=== PATIENT | female | born 1980 | race American Indian/Alaskan Native ===

== ENCOUNTER 2017-02-14 00:45 | Emergency (ER) | payer MEDICAID, OTHER ==
[2017-02-14 01:32] LABS: Basophils % (Auto) 0.8 % (0.0-1.8); Eosinophils % (Auto) 1.2 % (0.0-4.3); Hematocrit 33.3 % (30.3-42.9); Hemoglobin 10.9 gm/dl (10.1-14.3); Mean Corpuscular HGB Conc 33 % (30-34); Mean Corpuscular Volume 79 fl (79-97); Red Cell Distribution Width 16.6 % (13.2-15.2); White Blood Count 10.2 K/mm3 (4.5-11.0)
[2017-02-14 01:50] LABS: Alanine Aminotransferase 20 units/L (7-56); Albumin 3.6 g/dL (3.9-5); Albumin/Globulin Ratio 1.1 %; Alkaline Phosphatase 68 units/L (35-129); Anion Gap 16 mmol/L; BUN/Creatinine Ratio 21.66; Bilirubin,Total < 0.20 mg/dL (0.1-1.2); Blood Urea Nitrogen 13 mg/dL (7-17); Calcium 9.1 mg/dL (8.4-10.2); Carbon Dioxide 22 mmol/L (22-30); Chloride 101.6 mmol/L (98-107); Creatine Kinase 100 units/L (30-135); Glucose 89 mg/dL (65-100); Lipase 28 units/L (13-60); Mean Corpuscular Hemoglobin 26 pg (28-32); Platelet Count 346 K/mm3 (140-440); Potassium 3.8 mmol/L (3.6-5.0); Sodium 136 mmol/L (137-145); Total Protein 6.9 g/dL (6.3-8.2)
[2017-02-14 02:42] LABS: Bilirubin,Urine NEG (Negative); Blood,Urine NEG (Negative); Ketones,Urine NEG (Negative); Leukocyte Esterase,Urine TR (Negative); Mucus,Urine 2+ /HPF; Nitrite,Urine NEG (Negative); Protein,Urine <15 mg/dL mg/dL (Negative); Urobilinogen,Urine < 2.0 mg/dL (<2.0)
--- NOTE | 2017-02-14 10:59 | Emergency Department Report ---
ED HPI - General Chief complaint: Abdominal Pain Stated complaint: SOB, CP, ABD PAIN Time Seen by Provider: 02/14/17 10:18 Source: patient, RN notes reviewed, old records reviewed Mode of arrival: Ambulatory Limitations: No Limitations - History of Present Illness Complaint: abdominal pain -: Gradual, days(s) Location: other (LLQ) Quality: other (PAIN) Consistency: constant Improves with: none Worsens with: none Associated symptoms: denies other symptoms, abdominal pain, other (BP ELEVATED A /C; HX PREECLAMPSIA; NO FUR SEWER). denies: nausea/vomiting, vaginal bleeding, vaginal discharge, dysuria, headache, vision changes, malaise, dysparuenia, rash , seizure, shortness of breath, syncope, weakness Vaginal bleeding: none :: Yes OB History - Current : no complications OB History - Previous Pregnancies: preeclampsia Last menstrual period: 12/22/16 Pre- care: none - Related Data : 10 Para: 6 Ab: 4 (2-2) Home Medications Medication Instructions Recorded Confirmed Last Taken ALBUTEROL Inhaler [ProAir HFA 2 puff IH QID PRN 01/18/15 01/18/15 Unknown Inhaler] Labetalol [Normodyne TAB] 200 mg PO BID 01/18/15 01/18/15 Unknown Prednisone [predniSONE 10 mg 10 mg PO .TAPER 01/18/15 01/18/15 Unknown (6-Day Pack, 21 Tabs)] Vit-Fe Fumar-FA [ 1 tab PO QDAY 01/18/15 01/18/15 Unknown Vitamin] Previous Rx's Medication Instructions Recorded Last Taken Type Ibuprofen [Motrin 600 MG tab] 600 mg PO Q6H PRN #30 tablet 04/19/15 Unknown Rx Labetalol [Normodyne TAB] 100 mg PO BID #60 tablet 02/14/17 Unknown Rx Nitrofurantoin [place]ary/M-Cryst 100 mg PO Q12HR #10 capsule 02/14/17 Unknown Rx [Macrobid CAP] Ondansetron [Zofran Odt] 4 mg PO Q6H PRN #10 tab.rapdis 02/14/17 Unknown Rx Vit No.130/Iron/FA 1 each PO DAILY #30 tablet 02/14/17 Unknown Rx [ Tablet] Allergies Allergy/AdvReac Type Severity Reaction Status Date / Time No Known Allergies Allergy Verified 09/21/14 03:39 ED Review of Systems ROS: Stated complaint: SOB, CP, ABD PAIN Other details as noted in HPI Comment: All other systems reviewed and negative Constitutional: no symptoms reported, see HPI. denies: chills, diaphoresis, fever, malaise Eyes: as per HPI. denies: eye pain, eye discharge, vision change ENT: as per HPI. denies: ear pain, throat pain, dental pain, hearing loss, epistaxis Respiratory: no symptoms reported, see HPI. denies: cough, orthopnea, shortness of breath, SOB with exertion, SOB at rest, stridor Cardiovascular: as per HPI. denies: chest pain, palpitations, dyspnea on exertion, orthopnea, edema, syncope, paroxysmal nocturnal dyspnea Endocrine: no symptoms reported, see HPI, other (HAS HAD SEVERAL HOME PREG TESTS ). denies: excessive sweating, flushing, intolerance to cold, intolerance to heat, increased hunger, increased thirst, increased urine, unexplained weight gain, unexplained weight loss Gastrointestinal: as per HPI, abdominal pain (LLQ). denies: nausea, vomiting, diarrhea, constipation, hematemesis, melena Genitourinary: as per HPI. denies: urgency, dysuria, frequency, hematuria, discharge Musculoskeletal: as per HPI. denies: back pain, joint swelling, arthralgia Skin: as per HPI. denies: rash, lesions, change in color, change in hair/nails , pruritus Neurological: as per HPI. denies: headache, weakness, numbness, paresthesias, confusion Psychiatric: as per HPI. denies: anxiety, depression, auditory hallucinations, visual hallucinations, homicidal thoughts Hematological/Lymphatic: as per HPI. denies: easy bleeding, easy bruising, swollen glands ED Past Medical Hx - Past Medical History Previous Medical History?: Yes Hx Hypertension: Yes Hx CVA: No Hx Heart Attack/AMI: No Hx Congestive Heart Failure: No Hx Diabetes: No Hx Deep Vein Thrombosis: No Hx Pulmonary Embolism: No Hx GERD: No Hx Liver Disease: No Hx Renal Disease: No Hx of Cancer: No Hx Sickle Cell Disease: No Hx Arthritis: No Hx Headaches / Migraines: No Hx Seizures: No Hx Kidney Stones: No Hx Psychiatric Treatment: No Hx Asthma: Yes Hx COPD: No Hx HIV: No - Surgical History Past Surgical History?: Yes Additional Surgical History: leep, X 2,miscarriage X 2 - Family History Family history: no significant - Social History Smoking Status: Never Smoker Substance Use Type: None - Medications Home Medications: Home Medications Medication Instructions Recorded Confirmed Last Taken Type ALBUTEROL Inhaler [ProAir HFA 2 puff IH QID PRN 01/18/15 01/18/15 Unknown History Inhaler] Labetalol [Normodyne TAB] 200 mg PO BID 01/18/15 01/18/15 Unknown History Prednisone [predniSONE 10 mg 10 mg PO .TAPER 01/18/15 01/18/15 Unknown History (6-Day Pack, 21 Tabs)] Vit-Fe Fumar-FA [ 1 tab PO QDAY 01/18/15 01/18/15 Unknown History Vitamin] Ibuprofen [Motrin 600 MG tab] 600 mg PO Q6H PRN #30 tablet 04/19/15 Unknown Rx Labetalol [Normodyne TAB] 100 mg PO BID #60 tablet 02/14/17 Unknown Rx Nitrofurantoin Mccreary/M-Cryst 100 mg PO Q12HR #10 capsule 02/14/17 Unknown Rx [Macrobid CAP] Ondansetron [Zofran Odt] 4 mg PO Q6H PRN #10 tab.rapdis 02/14/17 Unknown Rx Vit No.130/Iron/FA 1 each PO DAILY #30 tablet 02/14/17 Unknown Rx [ Tablet] ED Physical Exam - General Limitations: No Limitations General appearance: alert - Head Head exam: Present: atraumatic - Eye Eye exam: Present: PERRL - ENT ENT exam: Present: normal exam, normal orophraynx, mucous membranes moist. Absent: mucous membranes dry - Neck Neck exam: Present: normal inspection. Absent: tenderness, meningismus - Respiratory Respiratory exam: Present: normal lung sounds bilaterally. Absent: respiratory distress, wheezes, rales, rhonchi, stridor - Cardiovascular Cardiovascular Exam: Present: regular rate, normal rhythm. Absent: bradycardia , tachycardia, irregular rhythm - GI/Abdominal GI/Abdominal exam: Present: soft, normal bowel sounds. Absent: distended, tenderness, guarding, rebound, rigid, diminished bowel sounds, hyperactive bowel sounds, hypoactive bowel sounds, organomegaly, mass, bruit, pulsatile mass , hernia - Rectal Rectal exam: Present: deferred - Extremities Exam Extremities exam: Present: normal inspection - Back Exam Back exam: Present: normal inspection, full ROM. Absent: tenderness, CVA tenderness (R), CVA tenderness (L) - Neurological Exam Neurological exam: Present: alert, oriented X3, CN II-XII intact, normal gait, reflexes normal - Psychiatric Psychiatric exam: Present: normal affect, normal mood - Skin Skin exam: Present: warm, dry, intact, normal color ED Course Vital Signs 02/14/17 02/14/17 01:02 04:01 Temperature 99.0 F 98.7 F Pulse Rate 99 H 87 Respiratory 20 18 Rate Blood Pressure 145/103 150/107 O2 Sat by Pulse 99 100 Oximetry - Reevaluation(s) Reevaluation #1: 02/14/17 13:38 TO ER RLQ CRAMPING LIKE MENSTRUAL SHE BELIEVED SHE MAY BE PREG SPOTTING IUD LMP 2 W AGO NO VAG DC NO CONCERN FOR STD ABD SNT BS N NO CVA NO DYSURIA NO HX FIBROIDS PREG NEG LABS NOTED BEEN A WHILE PER PT THAT SHE HAS BEEN TO OB SHE HAS HAD IUD FOR 5 Y SHE DECLINED SCAN SHE WILL SEE OB NEXT WEEK SHE WAS CONCERNED MORE THAT SHE HAD ECTOPIC PREG NO N/V/D TAKING PO PT UPDATED AND EDUCATED ON LABS AGAIN NO CONCERN STD ABD REEXAM WNL NO DYSURIA ULTRAM AND DC W FU. ED Medical Decision Making - Lab Data Result diagrams: 02/14/17 01:14 02/14/17 01:14 - Medical Decision Making CRAMPING ABD PAIN W ABN MENSES IN YOUNG HEALTHY FEMALE RO PREG NO UTI NO CONCERN STD DECLINED FURTHER STUDY SEE OB THURSDAY - Differential Diagnosis RO IUP Critical care attestation.: If time is entered above; I have spent that time in minutes in the direct care of this critically ill patient, excluding procedure time. ED Disposition Clinical Impression: Hypertension, IUP (intrauterine ), incidental, Dysuria, Irregular menses Disposition: DC-01 TO HOME OR SELFCARE Is pt being admited?: No Does the pt Need Aspirin: No Condition: Stable Instructions: (ED), Hypertension (ED) Additional Instructions: HYDRATE WELL MEDS ORDERED TODAY FOLLOW UP OB TELL THEM YOU WERE SEEN HERE IN ER EAT WELL MONITOR WEIGHT CAUTION WITH SALT AND FAST FOOD REST VITAMIN Prescriptions: Labetalol [Normodyne TAB] 100 mg PO BID #60 tablet Nitrofurantoin Mccreary/M-Cryst [Macrobid CAP] 100 mg PO Q12HR #10 capsule Ondansetron [Zofran Odt] 4 mg PO Q6H PRN #10 tab.rapdis PRN Reason: Nausea Vit No.130/Iron/FA [ Tablet] 1 each PO DAILY #30 tablet Referrals: PRIMARY CARE, [Primary Care Provider] - 3-5 Days LEIGHANN JENSEN MD [Staff Physician] - 3-5 Days RAFAEL LUND MD [Staff Physician] - 3-5 Days Time of Disposition: 12:31
[2017-02-14 11:06] LABS: Amylase 116 units/L (27-131)
--- NOTE | 2017-02-14 12:04 | Ultrasound Report ---
TRANSABDOMINAL AND TRANSVAGINAL OBSTETRICAL ULTRASOUND:02/14/17 00:45:00 CLINICAL: Left lower quadrant abdominal pain. Positive test. FINDINGS: Transabdominal and transvaginal ultrasound demonstrated a single intrauterine gestational sac with a living fetus. [place]-rump length measured 23.0 mm corresponding to a gestational age = 9 weeks 0 days. heart rate = number 177 beats/min. The yolk sac is normal and the cervix is closed. A soft tissue mass arises from the chorion with an attachment to the posterior inferior sac. The mass is between the amnion and chorion and measures 2.0 x 1.8 x 1.6 cm. It demonstrates no blood flow with color Doppler. The placenta is on the opposite side of the sac. No adnexal mass or free fluid. Normal ovaries. The right ovary measured 3.5 x 2.8 x 3.4cm. The left ovary measured 2.7 x 1.8 x 2.7cm. IMPRESSION: Single living intrauterine fetus at 9 weeks based on crown-rump length measurement. A 2 cm relatively avascular mass associated with the gestational sac and separate from the placenta. Recommend ultrasound followup. EDC based on ultrasound is 09/28/17.
[2017-02-14] MEDS ORDERED: MACROBID PO ONE (12:25)
[2017-02-14] MEDS ORDERED: ZOFRAN ODT PO ONE (12:25)
[2017-02-14] MEDS ORDERED: NORMODYNE PO ONE (12:25)
[2017-02-14 12:30] LABS: Lipase 22 units/L (13-60)
[2017-02-14 14:23] VITALS: BP 153/103
== END 2017-02-14 14:10 | disposition home or self-care (01) ==
LOC: ED 00:45
DX: O23.41 Unspecified infection of urinary tract in pregnancy, first trimester (principal); R30.0 Dysuria; O26.891 Other specified pregnancy related conditions, first trimester; I10 Essential (primary) hypertension; J45.909 Unspecified asthma, uncomplicated; Z3A.09 9 weeks gestation of pregnancy; Z98.890 Other specified postprocedural states
CPT/HCPCS: 36415; 76801; 76817; 80053; 81001; 82150; 82550; 83690; 84484; 84702; 84703; 85025; 86850; 86900; 86901; 93005; 93010; Q0162

== ENCOUNTER 2017-07-29 09:03 | Outpatient (CLI) | payer MEDICAID ==
[2017-07-29] MEDS ORDERED: CELESTONE SOLUSPAN IM ONE (10:15)
[2017-07-30 01:29] VITALS: BP 130/82
== END 2017-07-29 10:01 | disposition home or self-care (01) ==
LOC: TRG 09:03
PROVIDERS: ATTEND Obstetrics & Gynecology
DX: O47.03 False labor before 37 completed weeks of gestation, third trimester (principal); Z3A.32 32 weeks gestation of pregnancy
CPT/HCPCS: 59025; 96372; J0702

== ENCOUNTER 2017-07-29 23:49 | Outpatient (CLI) | payer MEDICAID ==
[2017-07-29] MEDS ORDERED: LACTATED RINGERS 500 ML IV ONE (23:54)
[2017-07-30 00:14] VITALS: BP 134/83
[2017-07-30] MEDS ORDERED: LACTATED RINGERS 1,000 ML ONE (00:24)
== END 2017-07-30 02:03 | disposition home or self-care (01) ==
LOC: TRG 23:49
PROVIDERS: ATTEND Obstetrics & Gynecology
DX: O47.03 False labor before 37 completed weeks of gestation, third trimester (principal); Z3A.32 32 weeks gestation of pregnancy
CPT/HCPCS: 36415; 59025; 82731; J7120

== ENCOUNTER 2017-07-30 02:12 | Emergency (ER) | payer MEDICAID ==
[2017-07-30 02:50] LABS: Basophils % (Auto) 0.3 % (0.0-1.8); Eosinophils % (Auto) 0.1 % (0.0-4.3); Hematocrit 30.5 % (30.3-42.9); Hemoglobin 9.8 gm/dl (10.1-14.3); Lymphocytes # (Auto) 1.4 K/mm3 (1.2-5.4); Lymphocytes % (Auto) 13.6 % (13.4-35.0); Mean Corpuscular HGB Conc 32 % (30-34); Mean Corpuscular Volume 75 fl (79-97); Monocytes # (Auto) 0.5 K/mm3 (0.0-0.8); Monocytes % (Auto) 5.2 % (0.0-7.3); Platelet Count 238 K/mm3 (140-440); Red Blood Count 4.09 M/mm3 (3.65-5.03); Red Cell Distribution Width 17.8 % (13.2-15.2)
[2017-07-30 02:52] LABS: Mean Corpuscular Hemoglobin 24 pg (28-32)
[2017-07-30 03:18] LABS: BUN/Creatinine Ratio 20; Blood Urea Nitrogen 10 mg/dL (7-17); Calcium 8.5 mg/dL (8.4-10.2); Hemolysis Index 0
--- NOTE | 2017-07-30 04:14 | XRay Report ---
FINAL REPORT EXAM: XR CHEST 1V AP HISTORY: Shortness of breath TECHNIQUE: An AP upright view of the chest was submitted. FINDINGS: The heart size and mediastinum appear normal. The lungs are clear. Pleural fluid is not seen. The bones and soft tissues are unremarkable. IMPRESSION: Normal chest.
[2017-07-30] MEDS ORDERED: PROVENTIL IH ONE (04:27)
--- NOTE | 2017-07-30 04:33 | Emergency Department Report ---
ED Shortness of Breath HPI - General Chief Complaint: Dyspnea/Respdistress Stated Complaint: SOB Time Seen by Provider: 07/30/17 04:22 Source: patient Mode of arrival: Ambulatory Limitations: No Limitations - History of Present Illness Initial Comments: Patient is 36 years old female. 33 weeks , history of asthma, patient presented with shortness of breath for the last few days. Patient was not using her inhaler because she is out of it. She denied any fever cough, runny nose or congestion. Patient denied any abdominal pain and vaginal bleeding. She stated that baby is moving well. No other complaints. MD Complaint: shortness of breath Consistency: intermittent Known History Of: asthma Associated Symptoms: denies other symptoms - Related Data Home Medications Medication Instructions Recorded Confirmed Last Taken ALBUTEROL Inhaler [ProAir HFA 2 puff IH QID PRN 01/18/15 01/18/15 Unknown Inhaler] Labetalol [Normodyne TAB] 200 mg PO BID 01/18/15 01/18/15 Unknown Prednisone [predniSONE 10 mg 10 mg PO .TAPER 01/18/15 01/18/15 Unknown (6-Day Pack, 21 Tabs)] Vit-Fe Fumar-FA [ 1 tab PO QDAY 01/18/15 01/18/15 Unknown Vitamin] Previous Rx's Medication Instructions Recorded Last Taken Type Ibuprofen [Motrin 600 MG tab] 600 mg PO Q6H PRN #30 tablet 04/19/15 Unknown Rx Labetalol [Normodyne TAB] 100 mg PO BID #60 tablet 02/14/17 Unknown Rx Nitrofurantoin [place]/M-Cryst 100 mg PO Q12HR #10 capsule 02/14/17 Unknown Rx [Macrobid CAP] Ondansetron [Zofran Odt] 4 mg PO Q6H PRN #10 tab.rapdis 02/14/17 Unknown Rx Vit No.130/Iron/Folic 1 each PO DAILY #30 tablet 02/14/17 Unknown Rx [ Tablet] Allergies Allergy/AdvReac Type Severity Reaction Status Date / Time No Known Allergies Allergy Verified 09/21/14 03:39 ED Review of Systems ROS: Stated complaint: SOB Other details as noted in HPI Comment: All other systems reviewed and negative Respiratory: orthopnea, shortness of breath, SOB with exertion, wheezing Cardiovascular: palpitations. denies: chest pain, dyspnea on exertion, orthopnea Gastrointestinal: denies: abdominal pain, nausea, vomiting ED Past Medical Hx - Past Medical History Previous Medical History?: Yes Hx Hypertension: Yes (CHTN AND PIH W/ PRIOR PREGNANCIES) Hx CVA: No Hx Heart Attack/AMI: No Hx Congestive Heart Failure: No Hx Diabetes: No Hx Deep Vein Thrombosis: No Hx Pulmonary Embolism: No Hx GERD: No Hx Liver Disease: No Hx Renal Disease: No Hx Sickle Cell Disease: No Hx Arthritis: No Hx Headaches / Migraines: No Hx Seizures: No Hx Kidney Stones: No Hx Psychiatric Treatment: No Hx Asthma: Yes (LAST USED INHALER APPRX 1 YEAR AGO) Hx COPD: No Hx HIV: No - Surgical History Additional Surgical History: leep, X 2,miscarriage X 2 - Social History Smoking Status: Never Smoker Substance Use Type: None - Medications Home Medications: Home Medications Medication Instructions Recorded Confirmed Last Taken Type ALBUTEROL Inhaler [ProAir HFA 2 puff IH QID PRN 01/18/15 01/18/15 Unknown History Inhaler] Labetalol [Normodyne TAB] 200 mg PO BID 01/18/15 01/18/15 Unknown History Prednisone [predniSONE 10 mg 10 mg PO .TAPER 01/18/15 01/18/15 Unknown History (6-Day Pack, 21 Tabs)] Vit-Fe Fumar-FA [ 1 tab PO QDAY 01/18/15 01/18/15 Unknown History Vitamin] Ibuprofen [Motrin 600 MG tab] 600 mg PO Q6H PRN #30 tablet 04/19/15 Unknown Rx Labetalol [Normodyne TAB] 100 mg PO BID #60 tablet 02/14/17 Unknown Rx Nitrofurantoin [place]/M-Cryst 100 mg PO Q12HR #10 capsule 02/14/17 Unknown Rx [Macrobid CAP] Ondansetron [Zofran Odt] 4 mg PO Q6H PRN #10 tab.rapdis 02/14/17 Unknown Rx Vit No.130/Iron/Folic 1 each PO DAILY #30 tablet 02/14/17 Unknown Rx [ Tablet] ED Physical Exam - General Limitations: No Limitations General appearance: alert, in no apparent distress - Head Head exam: Present: atraumatic, normocephalic - ENT ENT exam: Present: normal exam, normal orophraynx, mucous membranes moist - Neck Neck exam: Present: normal inspection, full ROM. Absent: tenderness, meningismus, lymphadenopathy - Respiratory Respiratory exam: Present: wheezes, decreased breath sounds. Absent: respiratory distress, rales, rhonchi, accessory muscle use, prolonged expiratory - Cardiovascular Cardiovascular Exam: Present: regular rate, normal rhythm, normal heart sounds - GI/Abdominal GI/Abdominal exam: Present: soft, normal bowel sounds, organomegaly (gravid uterus). Absent: distended, tenderness, guarding, rebound, rigid, mass, bruit, pulsatile mass, hernia - Extremities Exam Extremities exam: Present: normal inspection, full ROM, normal capillary refill. Absent: pedal edema, calf tenderness - Back Exam Back exam: Present: normal inspection. Absent: CVA tenderness (R), CVA tenderness (L) - Neurological Exam Neurological exam: Present: alert, oriented X3, CN II-XII intact, normal gait - Skin Skin exam: Present: warm, intact, normal color ED Course Vital Signs 07/30/17 02:25 Temperature 98.5 F Pulse Rate 104 H Respiratory 18 Rate Blood Pressure 122/88 O2 Sat by Pulse 99 Oximetry ED Medical Decision Making - Lab Data Result diagrams: 07/30/17 02:42 07/30/17 02:42 - EKG Data -: EKG Interpreted by [facility] EKG shows normal: sinus rhythm Rate: tachycardia - EKG Data Interpretation: no acute changes - Radiology Data Radiology results: report reviewed Referring Physician: SULLY ROBERTSON Patient Name: SAHIL SHELDON Date of : 1980 Sex: Female Report Date: 2017-07-30 Report Status: Finalized Findings [facility] [address] [place] [address] XRay Report Signed Patient: SAHIL SHELDON MR#: [id number] : 1980 Acct:[id number] Age/Sex: 36 / F ADM Date: 07/30/17 Loc: ED Attending Dr: Ordering Physician: SULLY ROBERTSON MD Date of Service: 07/30/17 Procedure(s): XR chest 1V ap Accession Number(s): [id number] cc: SULLY ROBERTSON MD Fluoro Time In Minutes: FINAL REPORT EXAM: XR CHEST 1V AP HISTORY: Shortness of breath TECHNIQUE: An AP upright view of the chest was submitted. FINDINGS: The heart size and mediastinum appear normal. The lungs are clear. Pleural fluid is not seen. The bones and soft tissues are unremarkable. IMPRESSION: Normal chest. Transcribed By: RB Dictated By: LUDMILA PEGUERO MD Electronically Authenticated By: LUDMILA PEGUERO MD Signed Date/Time: 07/30/17409 DD/ 9 TD/TT: 07/30/17409 Critical care attestation.: If time is entered above; I have spent that time in minutes in the direct care of this critically ill patient, excluding procedure time. ED Disposition Clinical Impression: Shortness of breath, Asthma exacerbation Disposition: TO HOME OR SELFCARE Is pt being admited?: No Condition: Stable Instructions: Asthma (ED), Dyspnea (ED) Referrals: AMBREEN STOLL MD [Primary Care Provider] - 3-5 Days
[2017-07-30 05:07] VITALS: BP 132/74
== END 2017-07-30 05:31 | disposition home or self-care (01) ==
LOC: ED 02:12
DX: O99.513 Diseases of the respiratory system complicating pregnancy, third trimester (principal); J45.901 Unspecified asthma with (acute) exacerbation; I10 Essential (primary) hypertension; Z3A.33 33 weeks gestation of pregnancy
CPT/HCPCS: 36415; 71045; 80048; 85025; 93005; 93010; 96374; 99284; J2930; 59025; 96360; 96361; 96372; J0702; J7120

== ENCOUNTER 2017-07-30 09:48 | Outpatient (CLI) | payer MEDICAID ==
[2017-07-30] MEDS ORDERED: LACTATED RINGERS 500 ML IV ONE (10:34)
[2017-07-30] MEDS ORDERED: PROCARDIA*For Tocolysis only PO ONE (11:01)
[2017-07-30] MEDS ORDERED: CELESTONE SOLUSPAN IM ONE (12:00)
[2017-07-30 14:34] VITALS: BP 139/92
== END 2017-07-30 14:17 | disposition home or self-care (01) ==
LOC: TRG 09:48
PROVIDERS: ATTEND Obstetrics & Gynecology
DX: O47.03 False labor before 37 completed weeks of gestation, third trimester (principal); Z3A.33 33 weeks gestation of pregnancy
CPT/HCPCS: 59025; 96360; 96361; 96372; J0702; J7120

== ENCOUNTER 2017-08-04 09:53 | Inpatient (IN) | payer MEDICAID ==
[2017-08-04] MEDS ORDERED: LACTATED RINGERS 500 ML IV ONE (10:05)
[2017-08-04 11:01] LABS: Hematocrit 30.1 % (30.3-42.9); Hemoglobin 9.5 gm/dl (10.1-14.3); Mean Corpuscular HGB Conc 32 % (30-34); Mean Corpuscular Volume 76 fl (79-97); Platelet Count 266 K/mm3 (140-440); Red Blood Count 3.98 M/mm3 (3.65-5.03); Red Cell Distribution Width 17.5 % (13.2-15.2)
[2017-08-04 11:06] LABS: Mean Corpuscular Hemoglobin 24 pg (28-32)
[2017-08-04 11:15] LABS: Bacteria,Urine 1+ /HPF (Negative); Bilirubin,Urine NEG (Negative); Blood,Urine NEG (Negative); Color,Urine Yellow (Yellow); Mucus,Urine FEW /HPF; Protein,Urine <15 mg/dL mg/dL (Negative)
[2017-08-04 11:20] LABS: Alanine Aminotransferase 10 units/L (7-56); Uric Acid 3.2 mg/dL (3.5-7.6)
[2017-08-04] MEDS ORDERED: NORMODYNE PO SCH (13:00)
[2017-08-04] MEDS ORDERED: COLACE PO PRN (13:28)
[2017-08-04] MEDS ORDERED: TYLENOL PO PRN (13:28)
[2017-08-04] MEDS ORDERED: LACTATED RINGERS 1,000 ML ONE (13:29)
[2017-08-04] MEDS ORDERED: ALUM-MAG HYDROX-SIMETH 200-200-20MG/5ML PO PRN (13:43)
[2017-08-04] MEDS ORDERED: ZOFRAN IV PRN (13:43)
[2017-08-04] MEDS ORDERED: MYLICON PO PRN (13:43)
[2017-08-04] MEDS ORDERED: MILK OF MAGNESIA PO PRN (13:43)
[2017-08-04] MEDS ORDERED: LACTATED RINGERS 1,000 ML IV SCH (14:00)
--- NOTE | 2017-08-04 14:31 | Consultation ---
History of Present Illness Consult date: 08/04/17 Requesting physician: HOLLY JOSÉ History of present illness: 37 y/o G11) [id number] ABIGAIL 09/17/17 EGA at 33 5/7 weeks Sent in from OB's office with BP's 140/90 per nurse High BP 152/104 - History of CHTN but not on meds - last took medication in 2015 " took myself off " No BP's 140/90's Reports PAYAN's but " I have had them throughout entire preg " ?? spots, No RUQ Pain History of Asthma and recently placed on steroids for one week takes Eight 5 mg tabs per day - Recently admitted for PTC's - got steroids and Mg ---- OB History X 6 in 99,, , 08, 11,15 Had Preeclampsia in 99 Had CHTN with PReeclampsia in 15 ------- Pos H/O HSV No C/D/d Meds Asthma and CHTN NKA ------ EFM 150's Will need US EFW and BPP EFM - 150's reassuring ----- Reports passing 1 Hour GTT ------- Abd obese no RUQ Pain , no gaurding Ext tr - 1 + edema , DTR's 1/, No clonus Past History - Obstetrical History : 11 Medications and Allergies Allergies Allergy/AdvReac Type Severity Reaction Status Date / Time No Known Allergies Allergy Verified 09/21/14 03:39 Home Medications Medication Instructions Recorded Confirmed Last Taken Type ALBUTEROL Inhaler [ProAir HFA 2 puff IH QID PRN 01/18/15 08/04/17 1 Day Ago History Inhaler] ~08/03/17 Vit-Fe Fumar-FA [ 1 tab PO QDAY 01/18/15 08/04/17 1 Day Ago History Vitamin] ~08/03/17 Ibuprofen [Motrin 600 MG tab] 600 mg PO Q6H PRN #30 tablet 04/19/15 08/04/17 Unknown Rx Ferrous Sulfate [Feosol 325 MG tab] 325 tab PO BID 07/30/17 08/04/17 1 Day Ago History ~08/03/17 predniSONE [Deltasone] 40 mg PO DAILY 08/04/17 08/04/17 08/04/17 08:00 History Active Meds: Active Medications Acetaminophen (Tylenol) 650 mg PO Q4H PRN PRN Reason: Pain MILD(1-3)/Fever >100.5/PAYAN Al Hydrox/Mg Hydrox/Simethicone (Alum-Mag Hydrox-Simeth [phone]/5ml) 30 ml PO Q6H PRN PRN Reason: Indigestion Docusate Sodium (Colace) 100 mg PO Q12H PRN PRN Reason: Constipation Lactated Ringer's (Lactated Ringers) 1,000 mls @ 75 mls/hr IV DIRECT LESLIE Labetalol HCl (Normodyne) 100 mg PO BID LESLIE Magnesium Hydroxide (Milk Of Magnesia) 30 ml PO QHS PRN PRN Reason: Laxative Effect Multivitamins/Iron/Calcium ( Vitamin) 1 each PO QDAY LESLIE Ondansetron HCl (Zofran) 4 mg IV Q6H PRN PRN Reason: Nausea And Vomiting Simethicone (Mylicon) 80 mg PO Q6H PRN PRN Reason: Gas pain Zolpidem Tartrate (Ambien) 10 mg PO ONCE PRN PRN Reason: Sleep - Vital Signs Vital signs: Vital Signs Temp Pulse Resp BP Pulse Ox 97.6 F 78 19 146/99 97 08/04/17 10:25 08/04/17 10:25 08/04/17 10:25 08/04/17 10:25 08/04/17 10:25 Temp Pulse Resp BP Pulse Ox 97.6 F 78 19 146/99 97 08/04/17 10:25 08/04/17 10:25 08/04/17 10:25 08/04/17 10:25 08/04/17 10:25 Results Result Diagrams: 08/04/17 10:31 08/04/17 10:31 Abnormal lab results 08/04/17 08/04/17 Range/Units 10:31 10:31 Hgb 9.5 L (10.1-14.3) gm/dl Hct 30.1 L (30.3-42.9) % MCV 76 L (79-97) fl MCH 24 L (28-32) pg RDW 17.5 H (13.2-15.2) % Creatinine 0.4 L (0.7-1.2) mg/dL Uric Acid 3.2 L (3.5-7.6) mg/dL Lactate Dehydrogenase 191 H (91-180) units/L All other labs normal. Assessment and Plan Assessment 1. Cruz IUP at 33 5/7 weeks 2. CHTN - R/O Superimposed Preeclampsia 3. H/O PTL 4. Anemia 5. Asthma 6. MO Recommendations 1. Steroids - given prior admission 2. If becomes symptomatic would start Mg 3. EFM 4. PIH Labs done see above 5. Iron - FeSO4 325 BID 6. Obtain US EFW and BPP 7. PIH labs twice per week while in hospital 8. BPP twice per week while in hospital 9. Delivery for S/S of severe preeclampsia or compromise 10. IV hydralazine for BP's Sys > 160 or Dobson >110 11. Methyldopa 250 PO TID 12. NICU consult 13. seq leg compressors 14. 24 Hour Urine Prot in progress 15. If remains mild may consider dc and delivery at 37 weeks with twice per week A-P testing
[2017-08-04] MEDS ORDERED: FIORICET PO PRN (16:18)
[2017-08-04] MEDS: ALDOMET PO SCH (17:23)
[2017-08-05] MEDS: AMBIEN PO PRN (00:52)
[2017-08-05] MEDS: ALDOMET PO SCH ×3 (09:25→21:47)
[2017-08-05] MEDS ORDERED: PRENATAL VITAMIN PO SCH (10:00)
--- NOTE | 2017-08-05 12:05 | History and Physical Report ---
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 Since admission her contractions have become infrequent but she continues to report headache and to have elevated blood pressures. She has had care at [facility] since 16 wks complicated by chronic hypertension on no meds, contractions prescribed Procardia but pt never took it, obesity, advanced maternal age, genital herpes without lesion or prodrome, uterine synechiae s/p multiple ultrasounds with MFM , and h/o LEEP procedure. She is GBS unknown. She has been comanaged by [facility] for the aforementioned issues. 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 History: herpes Family/Genetic History: diabetes, heart disease, hypertension, cancer - Obstetrical History Expected Date of Delivery: 09/14/17 Actual Gestation: 34 Week(s) 2 Day(s) : 11 Para: 6 Hx # Term Pregnancies: 6 Number of Pregnancies: 0 Spontaneous Abortions: 2 Induced : 2 Number of Living Children: 6 Medications and Allergies Allergies Allergy/AdvReac Type Severity Reaction Status Date / Time No Known Allergies Allergy Verified 09/21/14 03:39 Home Medications Medication Instructions Recorded Confirmed Last Taken Type ALBUTEROL Inhaler [ProAir HFA 2 puff IH QID PRN 01/18/15 08/04/17 1 Day Ago History Inhaler] ~08/03/17 Vit-Fe Fumar-FA [ 1 tab PO QDAY 01/18/15 08/04/17 1 Day Ago History Vitamin] ~08/03/17 Ibuprofen [Motrin 600 MG tab] 600 mg PO Q6H PRN #30 tablet 04/19/15 08/04/17 Unknown Rx Ferrous Sulfate [Feosol 325 MG tab] 325 tab PO BID 07/30/17 08/04/17 1 Day Ago History ~08/03/17 predniSONE [Deltasone] 40 mg PO DAILY 08/04/17 08/04/1708/04/18 08:00 History Active Meds: Active Medications Acetaminophen (Tylenol) 650 mg PO Q4H PRN PRN Reason: Pain MILD(1-3)/Fever >100.5/PAYAN Last Admin: 08/04/17 17:21 Dose: 650 mg Acetaminophen/Butalbital/Caffeine (Fioricet) 2 tab PO Q4H PRN PRN Reason: Headache Al Hydrox/Mg Hydrox/Simethicone (Alum-Mag Hydrox-Simeth [phone]/5ml) 30 ml PO Q6H PRN PRN Reason: Indigestion Docusate Sodium (Colace) 100 mg PO Q12H PRN PRN Reason: Constipation Last Admin: 08/05/17 09:27 Dose: 100 mg Lactated Ringer's (Lactated Ringers) 1,000 mls @ 75 mls/hr IV DIRECT [facility] Last Admin: 08/04/17 14:30 Dose: 75 mls/hr Magnesium Hydroxide (Milk Of Magnesia) 30 ml PO QHS PRN PRN Reason: Laxative Effect Methyldopa (Aldomet) 250 mg PO TID [facility] Last Admin: 08/05/17 09:25 Dose: 250 mg Multivitamins/Iron/Calcium ( Vitamin) 1 each PO QDAY [facility] Last Admin: 08/05/17 09:27 Dose: 1 each Ondansetron HCl (Zofran) 4 mg IV Q6H PRN PRN Reason: Nausea And Vomiting Simethicone (Mylicon) 80 mg PO Q6H PRN PRN Reason: Gas pain Zolpidem Tartrate (Ambien) 10 mg PO ONCE PRN PRN Reason: Sleep Last Admin: 08/05/17 00:52 Dose: 10 mg Review of Systems All systems: negative - Vital Signs Vital signs: Vital Signs Temp Pulse Resp BP Pulse Ox 97.6 F 78 19 146/99 97 08/04/17 10:25 08/04/17 10:25 08/04/17 10:25 08/04/17 10:25 08/04/17 10:25 Temp Pulse Resp BP Pulse Ox 96.4 F L 93 H 26 H 139/99 100 08/05/17 07:44 08/05/17 09:25 08/05/17 07:44 08/05/17 09:25 08/05/17 07:44 - Physical Exam Breasts: Positive: deferred Cardiovascular: Regular rate Lungs: Positive: Clear to auscultation Abdomen: Positive: soft (obese, gravid ) Uterus: Positive: enlarged (gravid ) Extremities: Positive: normal - Obstetrical FHR: auscultation normal Uterine Contraction Monitor Mode: External Uterine Contraction Pattern: Irregular Uterine Tone Measurement Phase: Resting Uterine Contraction Intensity: Mild Results Result Diagrams: 08/04/17 10:31 08/04/17 10:31 All other labs normal. Assessment and Plan A: IUP at 34w2d s/p 2 doses of betamethasone last week Chronic HTN with elevated blood pressures Asthma Obesity AMA Genital Herpes GBS unknown P: Admit to antepartum service. 24 urine collection MFM consult Antihypertensives as indicated Closely monitor status.
--- NOTE | 2017-08-05 13:10 | Consultation ---
History of Present Illness Consult date: 08/05/17 Requesting physician: POLINA FLANAGAN Reason for consult: gestational hypertension History of present illness: Date of Consult: Saturday, August 05, 2017 Patient Name: SAHIL SHELDON Date of : 84 Consulting Physician: Tatiana Malik M.D. Admitting Physicians: Dr. Polina Flanagan As you are aware this is a 37 year old Para 6046 at EGA = 33 weeks 6 days with an ABIGAIL of 09/17/17. Patient was referred to [facility] following BPs at 140/90 per nurse High BP 152/104 Current BP: 145/105 Patient has an UNCLEAR history of CHTN but has NOT taken medications during this . Patient complains of headache, dizziness and blurred vision which is getting worse in the last 3-4 days. Recently admitted for PTC's - got steroids and Mg OB History X 6 in 99, 03, 04, 08, 11, 15 Had Preeclampsia in 99 Had CHTN with Preeclampsia in 15 Past History - Obstetrical History : 11 Medications and Allergies Allergies Allergy/AdvReac Type Severity Reaction Status Date / Time No Known Allergies Allergy Verified 09/21/14 03:39 Home Medications Medication Instructions Recorded Confirmed Last Taken Type ALBUTEROL Inhaler [ProAir HFA 2 puff IH QID PRN 01/18/15 08/04/17 1 Day Ago History Inhaler] ~08/03/17 Vit-Fe Fumar-FA [ 1 tab PO QDAY 01/18/15 08/04/17 1 Day Ago History Vitamin] ~08/03/17 Ibuprofen [Motrin 600 MG tab] 600 mg PO Q6H PRN #30 tablet 04/19/15 08/04/17 Unknown Rx Ferrous Sulfate [Feosol 325 MG tab] 325 tab PO BID 07/30/17 08/04/17 1 Day Ago History ~08/03/17 predniSONE [Deltasone] 40 mg PO DAILY 08/04/17 08/04/17 08/04/17 08:00 History Active Meds: Active Medications Acetaminophen (Tylenol) 650 mg PO Q4H PRN PRN Reason: Pain MILD(1-3)/Fever >100.5/PAYAN Last Admin: 08/04/17 17:21 Dose: 650 mg Acetaminophen/Butalbital/Caffeine (Fioricet) 2 tab PO Q4H PRN PRN Reason: Headache Al Hydrox/Mg Hydrox/Simethicone (Alum-Mag Hydrox-Simeth [phone]/5ml) 30 ml PO Q6H PRN PRN Reason: Indigestion Docusate Sodium (Colace) 100 mg PO Q12H PRN PRN Reason: Constipation Last Admin: 08/05/17 09:27 Dose: 100 mg Lactated Ringer's (Lactated Ringers) 1,000 mls @ 75 mls/hr IV DIRECT [facility] Last Admin: 08/04/17 14:30 Dose: 75 mls/hr Magnesium Hydroxide (Milk Of Magnesia) 30 ml PO QHS PRN PRN Reason: Laxative Effect Methyldopa (Aldomet) 250 mg PO TID [facility] Last Admin: 08/05/17 09:25 Dose: 250 mg Multivitamins/Iron/Calcium ( Vitamin) 1 each PO QDAY [facility] Last Admin: 08/05/17 09:27 Dose: 1 each Ondansetron HCl (Zofran) 4 mg IV Q6H PRN PRN Reason: Nausea And Vomiting Simethicone (Mylicon) 80 mg PO Q6H PRN PRN Reason: Gas pain Zolpidem Tartrate (Ambien) 10 mg PO ONCE PRN PRN Reason: Sleep Last Admin: 08/05/17 00:52 Dose: 10 mg - Vital Signs Vital signs: Vital Signs Temp Pulse Resp BP Pulse Ox 97.6 F 78 19 146/99 97 08/04/17 10:25 08/04/17 10:25 08/04/17 10:25 08/04/17 10:25 08/04/17 10:25 Temp Pulse Resp BP Pulse Ox 97 F L 123 H 20 140/102 98 08/05/17 12:58 08/05/17 12:58 08/05/17 12:58 08/05/17 12:58 08/05/17 12:58 Results Result Diagrams: 08/04/17 10:31 08/04/17 10:31 All other labs normal. Assessment and Plan ASSESSMENT 1. Cruz IUP at 33 6/7 weeks 2. CHTN - R/O Superimposed Preeclampsia 3. Severe symptoms based on headache, dizziness and blurred vision NOT improving while hospitalized. 4. We recommend DELIVERY rather than expectant management. 5. H/O PTL 6. History of Anemia 7. History of Asthma 8. Morbid obesity RECOMMENDATIONS 1. Patient has previously received steroids for lung maturity. 2. Agree with magnesium sulfate. 3. I've indicated to the patient that there are a number of medical complications which would require early delivery as a general rule for any gestation. I've indicated that unexplained vaginal bleeding, spontaneous labor, -induced hypertension and other complications would require delivery before an elective delivery. 4. I've also indicated the recommendations from the [place] [employer] published in the ACOG committee opinion number [id number] regarding early term delivery. As well as recent studies from the Journal Obstetrics and Gynecology published in June [address] Colin et al indicate that for chronic hypertension with signs of severe preeclampsia should be delivered BEFORE 34 weeks of gestation. 5. Based on the fact that this patient has (likely superimposed) preeclampsia as well as symptoms of severe hypertension and elevated systolic blood pressure we would recommend DELIVERY of this rather than continued expectant management. a. REFERENCE: Medically indicated late- and early-term deliveries. Committee Opinion No. [id number]. [place] [employer]. Obstet Gynecol 2013;121:[id number]. 6. Maternal stabilization and DELIVERY is currently recommended based on and poorly controlled hypertension and symptoms during observation. 7. Accordingly we would classify this patient as having severe superimposed preeclampsia and would recommend DELIVERY rather than continued expectant management. 8. As noted above; with a confirmed diagnosis of preeclampsia would recommend proceeding with DELIVERY in this patient in view of the multiple factors which place this at risk for adverse outcome. 9. It would appear the risks for prolongation (ie severe preeclampsia, maternal sezures, placental abruption, HELLP, uteroplacental insufficiency and possible demise in utero) clearly outweigh the theoretical concerns regarding immaturity. 10. Would proceed as follows: Admit patient on labor and delivery for continuous heart rate monitoring. Maintain intravenous access. Bedrest in left lateral semi-Edwards position Assessment of blood pressures per floor protocol Intravenous magnesium sulfate as eclampsia prophylaxis as indicated. Strict monitoring of input and output Pharmaceutical blood pressure control in the presence of diastolic blood pressures > 105 mm Hg or Systolic BP > 180 mm Hg. Call [facility] if a labetalol infusion appears necessary Mode of delivery to be discussed determined by FHR tracing, SVE and Harrell score per the MD preparation supervisor. Case discussed with MD preparation supervisor. Thank you for allowing us to participate in the care of this patient. We look forward to the opportunity to -assist in her continued management. If you have any questions, we may be reached [phone].
[2017-08-05] MEDS ORDERED: NARCAN 0.4 MG/1 ML IV PRN (13:29)
[2017-08-05] MEDS ORDERED: MINERAL OIL PO PRN (13:29)
[2017-08-05] MEDS ORDERED: ZOFRAN IV PRN (13:29)
[2017-08-05] MEDS ORDERED: APRESOLINE IV PRN (13:29)
[2017-08-05] MEDS ORDERED: BRETHINE IVP PRN (13:29)
[2017-08-05] MEDS ORDERED: ePHEDrine SULFATE IV PRN (13:29)
[2017-08-05] MEDS ORDERED: BRETHINE SUB-Q PRN (13:29)
--- NOTE | 2017-08-05 13:29 | Event Note ---
Date: 08/05/17 [facility] note reviewed. Recommendation to proceed with delivery. NICU attending aware. Begin cervidil induction.
[2017-08-05 13:55] LABS: Creatinine,Urine 68.1 mg/dL (0.1-20.0)
[2017-08-05] MEDS ORDERED: XYLOCAINE 2% INFILTRATI ONE (14:00)
[2017-08-05] MEDS ORDERED: CALCIUM GLUCONATE IV SCH (14:00)
[2017-08-05] MEDS ORDERED: LACTATED RINGERS 1,000 ML IV SCH ×2 (14:00)
[2017-08-05] MEDS ORDERED: PITOCin/NS 20 UNIT/1000ML DRIP 20 UNITS/1,000 ML BAG IV SCH (14:00)
[2017-08-05 14:20] LABS: Creatinine 24 Hour,Urine 1.7 (0.8-2.8); Creatinine,Urine 69.4 mg/dL (0.1-20.0)
[2017-08-05] MEDS ORDERED: MAGNESIUM SULFATE 4GM/100ML 4 GM/100 ML BAG IV ONE (14:29)
[2017-08-05] MEDS ORDERED: CERVIDIL VG ONE (14:30)
[2017-08-05] MEDS ORDERED: POLYCILLIN/NS 2 GM/100 ML 2 GM/100 ML BAG IV ONE (14:45)
[2017-08-05] MEDS: MAGNESIUM SULFATE 40GM/1000ML 40 GM/1,000 ML BAG IV SCH (16:15)
--- NOTE | 2017-08-05 16:38 | Ultrasound Report ---
FINAL REPORT PROCEDURE: Follow-up obstetrical ultrasound. TECHNIQUE: Real-time sonography performed for focused follow-up or re-evaluation of each size/growth parameters and amniotic fluid or re-evaluation of suspected or confirmed abnormality on prior imaging. CPT 29152 HISTORY: Preeclampsia, surveillance. COMPARISON: No prior studies are available for comparison. FINDINGS: There is a single viable fetus in cephalic presentation. Cardiac activity is documented at 166 beats per minute. The amniotic fluid volume appears normal. The amniotic fluid index measures 23.0 centimeters. The placenta is anterior in location and grade 2. There is no evidence of placenta previa. The measured parameters are as follows: Biparietal diameter 8.5 centimeters, head circumference 31.7 centimeters, abdominal circumference 31.9 centimeters, femur length 6.4 centimeters. The calculated menstrual age is 34 weeks 5 days. The estimated date of confinement is 09/11/2017. The estimated weight is currently 2540 grams. IMPRESSION: Single viable fetus in cephalic presentation with a menstrual age of 34 weeks 5 days.
[2017-08-05] MEDS: SUBLIMAZE IV PRN (20:20)
[2017-08-05] MEDS: AMPICILLIN/NS 1 GM/50 ML 1 GM/50 ML BAG IV SCH (20:23)
[2017-08-06] MEDS: AMPICILLIN/NS 1 GM/50 ML 1 GM/50 ML BAG IV SCH ×4 (00:18→12:48)
[2017-08-06] MEDS: AMBIEN PO PRN (00:18)
[2017-08-06] MEDS: SUBLIMAZE IV PRN (04:42)
[2017-08-06] MEDS ORDERED: NACL 0.9% 1000 ML 1,000 ML ONE (05:35)
--- NOTE | 2017-08-06 07:50 | Progress Note ---
Assessment and Plan A: IUP at 34w3d s/p 2 doses of betamethasone last week Chronic HTN with superimposed preeclampsia Asthma Obesity AMA Genital Herpes GBS unknown receiving prophylaxis P: Continue pitocin induction Continue routine intrapartum care Subjective - Subjective Date of service: 08/06/17 Principal diagnosis: IUP at 34w3d; chronic HTN with severe preeclampsia, asthma Interval history: Pt received cervidil overnight and is now on pitocin Patient reports: no new complaints Objective - Vital Signs Vital Signs: Vital Signs - 12hr 08/05/17 08/05/17 08/06/17 20:33 21:47 00:12 Temperature 98 F Pulse Rate 115 H 106 H Respiratory 18 18 Rate Blood Pressure 135/101 Blood Pressure 129/89 [Left] 08/06/17 04:42 Temperature Pulse Rate Respiratory 18 Rate Blood Pressure 127/78 Blood Pressure [Left] - Exam Breasts: deferred Cardiovascular: Regular rate Uterus: Present: normal (gravid ) FHR: auscultation normal Uterine Contraction Monitor Mode: External Cervical Dilatation: 1 (soft) Uterine Contraction Pattern: Irregular Uterine Tone Measurement Phase: Resting Uterine Contraction Intensity: Mild - Labs Labs: Abnormal Labs 08/04/17 08/04/17 08/04/17 10:31 10:31 13:43 Hgb 9.5 L Hct 30.1 L MCV 76 L MCH 24 L RDW 17.5 H Creatinine 0.4 L Uric Acid 3.2 L Magnesium Lactate Dehydrogenase 191 H Urine Creatinine 69.4 H Ur Total Protein 24 Hr 245.00 H 08/04/17 08/05/17 08/06/17 13:43 21:32 04:58 Hgb Hct MCV MCH RDW Creatinine Uric Acid Magnesium 3.00 H 3.30 H Lactate Dehydrogenase Urine Creatinine 68.1 H Ur Total Protein 24 Hr Laboratory Results - last 24 hr 08/04/17 08/04/17 08/05/17 13:43 13:43 21:32 Magnesium 3.00 H Urine Total Volume 2450 2450 Urine Creatinine 69.4 H 68.1 H Ur Creatinine 24 Hour 1.7 Height (in) 63.0 Weight (lb) 235.0 Creatinine Clearance 242 Ur Total Protein 24 Hr 245.00 H Urine Total Protein 10 08/06/17 04:58 Magnesium 3.30 H Urine Total Volume Urine Creatinine Ur Creatinine 24 Hour Height (in) Weight (lb) Creatinine Clearance Ur Total Protein 24 Hr Urine Total Protein
[2017-08-06] MEDS ORDERED: NACL 0.9% 1000 ML 1,000 ML IV SCH (08:00)
[2017-08-06] MEDS: ALDOMET PO SCH ×2 (08:22→14:20)
[2017-08-06] MEDS: PITOCin/NS 30 UNIT/500ML 30 UNITS/500 ML BAG IV SCH ×2 (08:26→15:41)
--- NOTE | 2017-08-06 10:06 | Event Note ---
Date: 08/06/17 SVE: -2. Continue pitocin augmentation.
--- NOTE | 2017-08-06 10:52 | Anesthesia Consultation ---
Anesthesia Consult and Med Hx Date of service: 08/06/17 - Airway Anesthetic Teeth Evaluation: Good ROM Head & Neck: Adequate Mental/Hyoid Distance: Adequate Mallampati Class: Class III Intubation Access Assessment: Possibly Difficult - Pre-Operative Health Status ASA Pre-Surgery Classification: ASA3 Proposed Anesthetic Plan: Epidural, Spinal - Pulmonary Hx Smoking: No Hx Asthma: Yes (LAST USED INHALER APPRX 1 YEAR AGO) COPD: No Hx Pneumonia: No Hx Sleep Apnea: No - Cardiovascular System Hx Hypertension: Yes (CHTN AND PIH W/ PRIOR PREGNANCIES) Hx Heart Attack/AMI: No - Central Nervous System Hx Seizures: No Hx Psychiatric Problems: No - Endocrine Hx Renal Disease: No Hx End Stage Renal Disease: No Hx Liver Disease: No Hx Hypothyroidism: No Hx Hyperthyroidism: No - Hematic Hx Anemia: Yes (IRON DAILY) Hx Sickle Cell Disease: No - Other Systems Hx Alcohol Use: No Hx Obesity: Yes (BMI 38.1)
[2017-08-06] MEDS ORDERED: NARCAN 2 MG/2 ML IV PRN (10:53)
[2017-08-06] MEDS ORDERED: ePHEDrine SULFATE IV PRN (10:53)
[2017-08-06] MEDS ORDERED: fentaNYL-BUPIV 2 MCG/ML-0.125% 200 MCG/100 ML BAG EPIDURAL SCH (11:00)
--- NOTE | 2017-08-06 17:54 | Procedure Note ---
OB Delivery Note - Delivery Date of Delivery: 08/06/17 Surgeon: PAT FLANAGAN Estimated blood loss: other (400 mL) - Vaginal Delivery presentation: vertex Delivery position: OA Intrapartum events: preeclampsia, precipitous labor- <3hr, mult.variable deceleratio Delivery induction: cervidil Delivery augmentation: rupture of membranes, pitocin Delivery monitor: external FHT, internal uterine Route of delivery: Delivery placenta: spontaneous Episiotomy: none Delivery laceration: none Anesthesia: epidural Delivery comments: Pt progressed from 6 cm rapidly to complete/complete/+2 and pushed once to deliver a viable male over intact perineum under epidural anesthesia by . Head delivered in BALJEET position, quickly followed by shoulders and body. bulb suctioned on maternal abdomen. Cord clamped and cut and handed to NICU staff in attendance. Cord blood collected. Placenta delivered spontaneously. Vagina and perineum explored. No lacerations noted. - A at 1 minute: 8 at 5 minutes: 9 Gender: Male (2403g (5lb 5oz) @ 1730pm)
[2017-08-06] MEDS ORDERED: PHENERGAN PR PRN (19:53)
[2017-08-06] MEDS ORDERED: SODIUM CHLORIDE FLUSH SYRINGE 10 ML IV NR (19:53)
[2017-08-06] MEDS ORDERED: LANSINOH TP PRN ×2 (19:53)
[2017-08-06] MEDS ORDERED: ZOFRAN IV PRN (19:53)
[2017-08-06] MEDS ORDERED: TUCKS PAD TP PRN (19:53)
[2017-08-06] MEDS ORDERED: PHENERGAN PO PRN (19:53)
[2017-08-06] MEDS ORDERED: DULCOLAX PR PRN (19:53)
[2017-08-06] MEDS ORDERED: PITOCin/NS 20 UNIT/1000ML DRIP 20 UNITS/1,000 ML BAG IV SCH (19:53)
[2017-08-06] MEDS ORDERED: MILK OF MAGNESIA PO PRN (19:53)
[2017-08-06] MEDS ORDERED: TYLENOL PO PRN (19:53)
[2017-08-06] MEDS ORDERED: BENADRYL PO PRN (19:53)
[2017-08-06] MEDS: MOTRIN PO SCH (20:45)
[2017-08-06] MEDS: COLACE PO SCH ×2 (20:49→22:10)
[2017-08-06] MEDS: FEOSOL PO SCH ×2 (20:49→22:10)
[2017-08-07] MEDS ORDERED: NORMODYNE PO SCH (01:00)
[2017-08-07] MEDS: PERCOCET 5/325 PO PRN (05:04)
[2017-08-07] MEDS: MOTRIN PO SCH ×3 (05:04→21:16)
[2017-08-07 05:06] LABS: Hemoglobin 9.3 gm/dl (10.1-14.3)
[2017-08-07] MEDS: MAGNESIUM SULFATE 40GM/1000ML 40 GM/1,000 ML BAG IV SCH (05:06)
[2017-08-07] MEDS ORDERED: BOOSTRIX IM ONE (06:00)
[2017-08-07] MEDS ORDERED: NACL 0.9% 1000 ML 1,000 ML IV SCH (07:00)
[2017-08-07] MEDS: FEOSOL PO SCH ×2 (11:42→21:16)
[2017-08-07] MEDS: COLACE PO SCH ×2 (11:42→21:17)
[2017-08-07] MEDS: PRENATAL VITAMIN PO SCH (11:42)
--- NOTE | 2017-08-07 12:15 | Progress Note ---
Assessment and Plan PPD#1 s/p at 34 weeks chronic HTN with superimposed pree on mag until 530 pm continue present mgt Subjective - Subjective Date of service: 08/07/17 Principal diagnosis: IUP at 34w3d; chronic HTN with severe preeclampsia, asthma Patient reports: appetite normal, voiding normally, pain well controlled, flatus , ambulating normally : in NICU Objective - Vital Signs Latest vital signs: Vital Signs Temp Pulse Resp BP BP BP 08/07/17 10:28 18 131/89 08/07/17 08:50 98.6 F 99 H 18 137/89 08/07/17 06:45 98.5 F 91 H 18 131/88 08/07/17 04:45 98.5 F 88 18 117/78 08/07/17 02:21 98.2 F 93 H 18 126/85 08/07/17 00:15 98.2 F 96 H 18 119/71 08/06/17 22:11 98.6 F 105 H 20 134/78 08/06/17 20:15 98.4 F 105 H 20 139/92 08/06/17 20:04 112 H 129/93 08/06/17 18:51 108 H 18 153/98 08/06/17 18:16 114 H 153/111 08/06/17 18:10 109 H 127/102 08/06/17 18:06 108 H 137/110 08/06/17 17:45 107 H 138/92 08/06/17 17:30 113 H 135/98 08/06/17 17:00 116 H 130/101 08/06/17 16:30 102 H 136/98 08/06/17 16:15 111 H 136/94 08/06/17 16:00 104 H 137/89 08/06/17 15:50 100 H 121/81 08/06/17 15:25 102 H 128/85 08/06/17 15:20 101 H 126/87 08/06/17 14:20 106 H 144/98 Intake and Output 08/06/17 08/07/17 08/07/17 23:59 07:59 15:59 Intake Total 480 1041.25 240 Output Total 800 1300 Balance -320 -258.75 240 Intake: IV 921.25 MAGNESIUM SULFATE 40GM/ 921.25 1000ML 40 gm In 1,000 ml @ 1 GM/HR 25 mls/hr IV DIRECT [facility] Rx#:[id number] Oral 240 Intake, Free Water 480 120 Output: Urine 800 1300 Indwelling Catheter 800 1300 Other: Total, Intake Amount 240 Total, Output Amount 800 500 Estimated Blood Loss 400 - Exam Breasts: Present: normal Cardiovascular: Present: Regular rate, Normal S1 Lungs: Present: Clear to auscultation, Normal air movement Abdomen: Present: normal appearance, soft, normal bowel sounds. Absent: distention, tenderness, guarding Vulva: both: normal Uterus: Present: normal, firm, fundal height below umbilicus. Absent: bogginess , tenderness Extremities: Present: normal Deep Tendon Reflex Grade: Normal +2 - Labs Labs: Abnormal lab results 08/06/17 08/06/17 08/07/17 Range/Units 16:02 22:38 04:45 Hgb 9.3 L (10.1-14.3) gm/dl Hct 29.0 L (30.3-42.9) % Magnesium 3.20 H 3.00 H (1.7-2.3) mg/dL 08/07/17 Range/Units 04:45 Hgb (10.1-14.3) gm/dl Hct (30.3-42.9) % Magnesium 2.90 H (1.7-2.3) mg/dL
[2017-08-07] MEDS ORDERED: M-M-R II VACCINE SUB-Q ONE (17:56)
[2017-08-08] MEDS: MOTRIN PO SCH (05:51)
[2017-08-08] MEDS ORDERED: PROAIR IH PRN (11:21)
--- NOTE | 2017-08-08 11:29 | Progress Note ---
Assessment and Plan PPD#2 s/p at 34 weeks chronic HTN with superimposed pree s/p mag per nurse sob pulse ox 100% hx of asthma ordered resp therapy and albuterol ekg to r/o cardiac consider d/c home tonight Subjective - Subjective Date of service: 08/08/17 Principal diagnosis: IUP at 34w3d; chronic HTN with severe preeclampsia, asthma Patient reports: appetite normal, voiding normally, pain well controlled, flatus , ambulating normally [place]: in NICU Objective - Vital Signs Latest vital signs: Vital Signs Temp Pulse Resp BP BP Pulse Ox 08/08/17 10:00 100 08/08/17 09:11 98.3 F 95 H 18 131/82 97 08/08/17 04:00 98.6 F 76 18 131/81 08/08/17 00:00 98.6 F 78 18 131/75 08/07/17 22:00 98.6 F 82 16 125/70 08/07/17 17:39 98.2 F 95 H 18 130/78 97 08/07/17 16:55 98.2 F 97 H 18 130/81 98 08/07/17 12:12 98.4 F 99 H 18 134/82 97 Intake and Output 08/07/17 08/08/17 08/08/17 23:59 07:59 15:59 Intake Total 780 300 240 Output Total 900 Balance -120 300 240 Intake: Oral 480 240 Intake, Free Water 300 300 Output: Urine 900 Indwelling Catheter 900 Other: Total, Intake Amount 360 240 Total, Output Amount 300 # Voids Void 1 1 - Exam Breasts: Present: normal Cardiovascular: Present: Regular rate, Normal S1 Lungs: Present: Clear to auscultation, Normal air movement Abdomen: Present: normal appearance, soft, normal bowel sounds. Absent: distention, tenderness, guarding Vulva: both: normal Uterus: Present: normal, firm, fundal height below umbilicus. Absent: bogginess , tenderness Extremities: Present: normal Deep Tendon Reflex Grade: Normal +2 Incision: Present: normal
[2017-08-08] MEDS ORDERED: PROVENTIL IH PRN ×2 (11:49→12:32)
[2017-08-08] MEDS: FEOSOL PO SCH ×2 (13:37→21:21)
[2017-08-08] MEDS: PRENATAL VITAMIN PO SCH (13:38)
[2017-08-08] MEDS: PERCOCET 5/325 PO PRN (18:21)
[2017-08-08] MEDS: COLACE PO SCH (21:22)
[2017-08-09] MEDS: PERCOCET 5/325 PO PRN (01:47)
[2017-08-09] MEDS: MOTRIN PO SCH ×2 (01:47→15:08)
--- NOTE | 2017-08-09 08:18 | Progress Note ---
Assessment and Plan PPD#3 s/p at 34 weeks baby in NICCU chronic HTN with superimposed pree ( BP 130/70s) s/p mag resolved sob s/p tx for asthma d/c home with f/u next week Subjective - Subjective Date of service: 08/09/17 Principal diagnosis: IUP at 34w3d; chronic HTN with severe preeclampsia, asthma Patient reports: appetite normal, voiding normally, pain well controlled, flatus , ambulating normally [place]: doing well, in NICU Objective - Vital Signs Latest vital signs: Vital Signs Temp Pulse Pulse Resp Resp BP BP 08/09/17 04:10 98.6 F 88 16 132/71 08/09/17 00:30 98.6 F 72 18 139/93 08/08/17 21:15 98.6 F 82 16 138/98 08/08/17 18:21 20 08/08/17 17:36 99 F 104 H 20 144/88 08/08/17 12:37 98.5 F 100 H 18 133/88 08/08/17 12:26 86 18 08/08/17 10:00 08/08/17 09:11 98.3 F 95 H 18 131/82 Pulse Ox 08/09/17 04:10 08/09/17 00:30 08/08/17 21:15 08/08/17 18:21 08/08/17 17:36 08/08/17 12:37 98 08/08/17 12:26 08/08/17 10:00 100 08/08/17 09:11 97 Intake and Output 08/08/17 08/09/17 08/09/17 22:59 07:59 15:59 Intake Total Balance Intake: Oral Intake, Free Water Other: Total, Intake Amount # Voids Void - Exam Breasts: Present: normal Cardiovascular: Present: Regular rate, Normal S1 Lungs: Present: Clear to auscultation, Normal air movement Abdomen: Present: normal appearance, soft, normal bowel sounds. Absent: distention, tenderness, guarding Vulva: both: normal Uterus: Present: normal, firm, fundal height below umbilicus. Absent: bogginess , tenderness Extremities: Present: normal Deep Tendon Reflex Grade: Normal +2 Incision: Present: normal, dry, intact
--- NOTE | 2017-08-09 08:19 | Discharge Summary ---
Providers - Providers Date of Admission: 08/04/17 10:05 Date of discharge: 08/09/17 Attending physician: HOLLY JOSÉ MD 08/04/17 13:43 Consult to Physician [CONS] Routine Consulting Provider: Reason For Exam: chtn pregnacy. [address] consult to:: [facility] 08/06/17 19:53 Consult to Video Control Operator [CONS] Routine Reason For Exam: assistance with , SNS Primary care physician: HOLLY JOSÉ MD Hospitalization Reason for admission: IUP - Delivery: Episiotomy: none Laceration: none Other procedures: none complications: none Discharge diagnosis: delivery baby: male Condition at discharge: Good Disposition: DC-01 TO HOME OR SELFCARE Plan - Discharge Medications Prescriptions: Docusate Sodium [Colace] 100 mg PO BID PRN #30 capsule PRN Reason: Constipation Ferrous Sulfate 325 mg PO BID #30 tablet. Ibuprofen [Motrin] 600 mg PO Q8H PRN #30 tablet PRN Reason: Pain oxyCODONE /ACETAMINOPHEN [Percocet 5/325] 1 tab PO Q6HR PRN #30 tablet PRN Reason: Pain - Provider Discharge Summary Activity: routine, no sex for 6 weeks, no strenuous exercise Diet: routine Instructions: routine Additional instructions: [] Smoking cessation referral if applicable(refer to patient education folder for contact #) [] Refer to [facility]'s [facility] Booklet Call your doctor immediately for: * Fever > 100.5 * Heavy vaginal bleeding ( >1 pad per hour) * Severe persistent headache * Shortness of breath * Reddened, hot, painful area to leg or breast * Drainage or odor from incision. * Keep incision clean and dry at all times and follow doctor's instructions regarding bathing/showering - Follow up plan Follow up: HOLLY JOSÉ MD [Primary Care Provider] - 7 Days
[2017-08-09] MEDS: FEOSOL PO SCH (15:17)
[2017-08-09] MEDS: COLACE PO SCH (15:17)
[2017-08-09] MEDS: PRENATAL VITAMIN PO SCH (15:18)
[2017-08-09 17:15] VITALS: BP 134/93
== END 2017-08-09 16:30 | disposition home or self-care (01) | DRG 774 ==
LOC: TRG 09:53 → LD 10:05 → OBSVTOIN 10:05 → LD 10:06 → OB 08-06 19:43
PROVIDERS: ADMIT Obstetrics & Gynecology; ATTEND Obstetrics & Gynecology
PROC: 10E0XZZ Delivery of Products of Conception, External Approach (ICD-10-PCS; principal; 2017-08-06)
PROC: 00HU33Z Insertion of Infusion Device into Spinal Canal, Percutaneous Approach (ICD-10-PCS; 2017-08-06)
PROC: 3E0R3BZ Introduction of Anesthetic Agent into Spinal Canal, Percutaneous Approach (ICD-10-PCS; 2017-08-06)
PROC: 3E0P7VZ Introduction of Hormone into Female Reproductive, Via Natural or Artificial Opening (ICD-10-PCS; 2017-08-06)
DX: O62.3 Precipitate labor (principal); O11.3 Pre-existing hypertension with pre-eclampsia, third trimester; O99.214 Obesity complicating childbirth; E66.01 Morbid (severe) obesity due to excess calories; Z68.38 Body mass index [BMI] 38.0-38.9, adult; O98.32 Other infections with a predominantly sexual mode of transmission complicating childbirth; A60.00 Herpesviral infection of urogenital system, unspecified; O60.14X0 Preterm labor third trimester with preterm delivery third trimester, not applicable or unspecified; O99.52 Diseases of the respiratory system complicating childbirth; J45.909 Unspecified asthma, uncomplicated; O99.02 Anemia complicating childbirth; D64.9 Anemia, unspecified; Z83.3 Family history of diabetes mellitus; Z37.0 Single live birth; Z3A.34 34 weeks gestation of pregnancy; Z82.49 Family history of ischemic heart disease and other diseases of the circulatory system; Z80.8 Family history of malignant neoplasm of other organs or systems; O76 Abnormality in fetal heart rate and rhythm complicating labor and delivery
CPT/HCPCS: 36415; 76816; 81001; 82565; 82570; 82575; 83615; 83735; 84156; 84450; 84460; 84550; 85014; 85018; 85027; 86850; 86900; 86901; 88307; 93005; 93010; 99211; G0463; J0290; J0360; J2590; J3010; J3475; J7030; J7120

== ENCOUNTER 2019-03-16 05:45 | Day surgery (SDC) | payer MEDICAID, OTHER ==
--- NOTE | 2019-03-15 13:55 | History and Physical Report ---
History of Present Illness Date of examination: 03/14/19 Chief complaint: Undesired Fertility History of present illness: Pt is a 38 year old -Thai female who presents for surgical sterilization. She is aware of long acting reversible contraceptive methods but she desires to proceed. She has been offered bilateral salpingectomy but she declines. 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 History: chlamydia (remote history ), herpes (no lesion or prodrome ), trichomonas (remote history ) Family/Genetic History: diabetes, heart disease, hypertension Social history: no significant social history - Obstetrical History : 11 Para: 7 Hx # Term Pregnancies: 6 Number of Pregnancies: 1 Spontaneous Abortions: 2 Induced : 2 Number of Living Children: 7 Medications and Allergies Allergies Allergy/AdvReac Type Severity Reaction Status Date / Time No Known Allergies Allergy Verified 03/10/19 12:20 Home Medications Medication Instructions Recorded Confirmed Last Taken Type No Known Home Medications [No 03/10/19 03/10/19 Unknown History Reported Home Medications] Active Meds: Active Medications Celecoxib (Celebrex) 200 mg PO PREOP NR Stop: 03/16/19 21:00 Gabapentin (Neurontin) 300 mg PO PREOP NR Stop: 03/16/19 21:00 Lactated Ringer's (Lactated Ringers) 1,000 mls @ 100 mls/hr IV DIRECT LESLIE Midazolam HCl (Versed) 2 mg IV PREOP NR Stop: 03/16/19 21:00 Review of Systems All systems: negative - Physical Exam Breasts: Positive: deferred Cardiovascular: Regular rate Lungs: Positive: Clear to auscultation Abdomen: Positive: soft (obese ) Extremities: Positive: normal Results All other labs normal. Assessment and Plan A: Undesired Fertility Hypertension Obesity P: EKG preop Proceed with laparoscopic bilateral tubal ligation and other indicated procedures
[~2019-03-16 05:45] MED LIST: ANCEF/STERILE WATER 2 GM/20 ML 2 GM/20 ML SYRINGE IV NR
[2019-03-16] MEDS ORDERED: VERSED IV NR (06:00)
[2019-03-16] MEDS ORDERED: GABAPENTIN PO NR (06:00)
[2019-03-16] MEDS ORDERED: NACL BACTERIOSTATIC INFILTRATI ONE (06:20)
[2019-03-16] MEDS ORDERED: LACTATED RINGERS 1,000 ML IV SCH (07:00)
[2019-03-16 07:03] LABS: Hematocrit 32.1 % (30.3-42.9); Hemoglobin 9.9 gm/dl (10.1-14.3); Mean Corpuscular HGB Conc 31 % (30-34); Mean Corpuscular Volume 73 fl (79-97); Platelet Count 437 K/mm3 (140-440); Red Blood Count 4.38 M/mm3 (3.65-5.03); Red Cell Distribution Width 17.4 % (13.2-15.2)
[2019-03-16] MEDS ORDERED: DILAUDID IV PRN (07:13)
--- NOTE | 2019-03-16 07:16 | Anesthesia Day of Surgery ---
Anesthesia Day of Surgery - Day of Surgery Patient Examined: Yes Patient H&P Reviewed: Yes Patient is NPO: Yes
--- NOTE | 2019-03-16 07:16 | Anesthesia Consultation ---
Anesthesia Consult and Med Hx Date of service: 03/16/19 - Airway Anesthetic Teeth Evaluation: Good ROM Head & Neck: Adequate Mental/Hyoid Distance: Adequate Mallampati Class: Class I Intubation Access Assessment: Probably Good - Pulmonary Exam CTA: Yes - Cardiac Exam Cardiac Exam: RRR - Pre-Operative Health Status ASA Pre-Surgery Classification: ASA2 Proposed Anesthetic Plan: General - Pulmonary Hx Smoking: No Hx Asthma: Yes (no recent inhaler use) - Cardiovascular System Hx Hypertension: Yes (no current rx for antihypertensives) Hx Heart Attack/AMI: No - Central Nervous System CVA: No - Gastrointestinal Hx Gastroesophageal Reflux Disease: No - Endocrine Hx Renal Disease: No Hx Liver Disease: No Hx Insulin Dependent Diabetes: No Hx Non-Insulin Dependent Diabetes: No Hx Thyroid Disease: No - Hematic Hx Anemia: Yes - Other Systems Hx Obesity: Yes (BMI 38) - Additional Comments Anesthesia Medical History Comments: No hx anesthetic complications.
[2019-03-16] MEDS ORDERED: MARCAINE 0.5% INFILTRATI ONE ×2 (07:19→08:04)
[2019-03-16] MEDS ORDERED: MARCAINE 0.25% INFILTRATI ONE (07:19)
[2019-03-16] MEDS ORDERED: ZOFRAN ONE (07:29)
[2019-03-16] MEDS ORDERED: DECADRON ONE (07:29)
[2019-03-16] MEDS ORDERED: ROBINUL ONE (07:29)
[2019-03-16] MEDS ORDERED: BLOXIVERZ ONE (07:29)
[2019-03-16] MEDS ORDERED: SUBLIMAZE ONE (07:29)
[2019-03-16] MEDS ORDERED: ZEMURON IV ONE (07:29)
[2019-03-16] MEDS ORDERED: PHENYLEPHRINE/NS Syringe 1,000 MCG/10 ML IV ONE (07:29)
[2019-03-16] MEDS ORDERED: XYLOCAINE MPF 2% ONE (07:29)
[2019-03-16] MEDS ORDERED: DIPRIVAN 10 MG/ML IV ONE (07:30)
[2019-03-16] MEDS ORDERED: SILVER NITRATE TP ONE (08:39)
--- NOTE | 2019-03-16 09:33 | Operative Report ---
Operative Report Operative Report: Date of procedure: March 16, 2019 Preoperative diagnosis: 1) Multiparity desires permanent sterilization 2) O besity Postoperative diagnosis: Same Procedure: Laparoscopic bilateral tubal ligation via Filshie clip method Surgeon: Polina Gilliam M.D. Anesthesia: General endotracheal anesthesia Findings: 1) Anteverted uterus that sounded to 8 cm 2) Normal appearing tubes and ovaries Estimated blood loss: minimal IV fluid: 800 mL Urine output: 100 mL clear prior to the procedure Specimens: None Complications: None. Counts correct 2 Disposition: Stable to PACU Indications for procedure: This patient is a 38 year old -[place] female who presents for surgical sterilization. She is aware of long acting reversible contraceptive methods but she desires to proceed. Operation in detail: After the risks, benefits, alternatives and complications of the procedure were explained to the patient, she gave informed consent for the procedure. She was subsequently taken to the operating room with her IV noted to be running and placed in the dorsal supine position with sequential compression devices functioning. General endotracheal anesthesia was then induced without difficulty. An exam under anesthesia was then performed yielding a 8-10 wk sized anteverted uterus. The patient was then placed in placement dorsal lithotomy position and prepped and draped in normal sterile fashion. A timeout was then performed. The bladder was then drained of urine yielding 100 mL of clear urine. An open sided speculum was placed into the vagina for visualization of the cervix. A single-tooth tenaculum was placed on the anterior lip of the cervix for traction. The uterus was then sounded to 8 cm. A uterine manipulator was then placed. The single-tooth tenaculum and speculum were then removed from the vagina. The surgeon's gloves were then changed. Attention was then turned to entry into the abdominal cavity. A 5 mm infraumbilical incision was made with an 11 blade. The skin was grasped on either side of the umbilicus and tented up. The Veres needle was placed into the peritoneal cavity, confirmed with a saline drop test. The abdomen was then insufflated with CO2 gas to a pressure of 15 mmHg. A 5 mm Visiport trocar was then placed. An anatomic survey was then performed with findings as indicated above. A second trocar site was created 4 cm superior to the pubic symphysis in the midline measuring 8 mm. An 8 mm trocar was then placed under direct visualization. The patient was placed in the Trendelenburg position. The uterus was elevated, and two Filshie clips were then placed across the right and left fallopian tubes. At this time, all instruments were removed from the abdominal cavity. The pneumoperitoneum was released. The incisions were then infiltrated with half percent Marcaine. The incisions were then reapproximated with 4-0 Vicryl in a subcuticular fashion. They were then covered with skin glue. All instruments were then removed atraumatically from the vagina. At this time the procedure was ended. The patient was placed into the dorsal supine position and extubated without difficulty. She was subsequently taken to the PACU in stable condition. All instrument, needle and lap counts were correct 2.
--- NOTE | 2019-03-16 09:36 | Short Stay Summary ---
Short Stay Documentation Date of service: 03/16/19 - History H&P: dictated Social history: no significant social history - Allergies and Medications Current Medications: Allergies No Known Allergies Allergy (Verified 03/10/19 12:20) Home Medications Medication Instructions Recorded Confirmed Last Taken Type No Known Home Medications [No 03/10/19 03/10/19 Unknown History Reported Home Medications] Active Medications Celecoxib (Celebrex) 200 mg PO PREOP NR Stop: 03/16/19 21:00 Last Admin: 03/16/19 06:30 Dose: 200 mg Documented by: Gabapentin (Neurontin) 300 mg PO PREOP NR Stop: 03/16/19 21:00 Last Admin: 03/16/19 06:30 Dose: 300 mg Documented by: Hydromorphone HCl (Dilaudid) 0.5 mg IV Q10MIN PRN PRN Reason: Pain , Severe (7-10) Lactated Ringer's (Lactated Ringers) 1,000 mls @ 100 mls/hr IV DIRECT LESLIE Last Admin: 03/16/19 06:50 Dose: 100 mls/hr Documented by: Cefazolin Sodium (Ancef/Sterile Water 2 Gm/20 Ml) 2 gm in 20 mls @ 80 mls/hr IV PREOP NR; Protocol Stop: 03/16/19 23:59 Midazolam HCl (Versed) 2 mg IV PREOP NR Stop: 03/16/19 21:00 Last Admin: 03/16/19 07:19 Dose: 2 mg Documented by: - Physical exam Breasts: deferred - Brief post op/procedure progress note Date of procedure: 03/16/19 Pre-op diagnosis: Undesired Fertility, Obesity Post-op diagnosis: same Procedure: Laparoscopic bilateral tubal ligation via Filshie clip method Anesthesia: GETA Findings: 1) Anteverted uterus that sounded to 8 cm 2) Normal appearing tubes and ovaries Surgeon: PAT GILLIAM Estimated blood loss: minimal Pathology: none - Hospital course Hospital course: Pt underwent laparoscopic bilateral tubal ligation which she tolerated well. She was observed in the PACU until she met discharge criteria. She will follow up in the office in [address] Gilliam. - Disposition Condition at discharge: Stable Disposition: DC-[id number] TO HOME OR SELFCARE - Discharge Diagnoses (1) Hypertension Status: Acute (2) Encounter for sterilization Status: Acute (3) Obesity Status: Acute Qualifiers: Obesity type: unspecified obesity type Obesity classification: adult class 2 (BMI 35 - 39.9) Serious obesity comorbidity presence: unspecified whether serious comorbidity present Body mass index: BMI 38.0-38.9 Qualified Code(s): E66.9 - Obesity, unspecified; Z68.38 - Body mass index (BMI) 38.0-38.9, adult Short Stay Discharge Plan Activity: other (Nothing in vagina, no tub baths for 4 wks ) Weight Bearing Status: Full Weight Bearing Diet: regular Wound: keep clean and dry Follow up with: PAT GILLIAM MD [Staff Physician] - 7 Days Forms: Outpatient Surgery DC Inst. Prescriptions: Ibuprofen [Motrin] 800 mg PO Q8HR PRN #30 tablet PRN Reason: Pain, Moderate (4-6) oxyCODONE /ACETAMINOPHEN [Percocet 5/325] 1 tab PO Q6HR PRN #30 tablet PRN Reason: Pain
[2019-03-16] MEDS ORDERED: PERCOCET 5/325 PO PRN (09:58)
[2019-03-16 14:59] VITALS: BP 138/89
--- NOTE | 2019-03-16 17:48 | Post Anesthesia Evaluation ---
- Post Anesthesia Evaluation Patient Participated: Yes Airway Patent: Yes Stable Respiratory Function: Yes Nausea/Vomiting: No Temp > 96.8F: Yes Pain Manageable: Yes Adequeate Hydration: Yes Anesthesia Complications: No Block Receding Appropriately: Not Applicable Patient on Ventilator: No
== END 2019-03-16 13:00 | disposition home or self-care (01) ==
LOC: OR 05:45
PROVIDERS: ATTEND Obstetrics & Gynecology
DX: Z30.2 Encounter for sterilization (principal); I10 Essential (primary) hypertension; E66.9 Obesity, unspecified; J45.909 Unspecified asthma, uncomplicated; Z79.899 Other long term (current) drug therapy; Z87.440 Personal history of urinary (tract) infections; Z68.38 Body mass index [BMI] 38.0-38.9, adult; Z98.890 Other specified postprocedural states; Z86.2 Personal history of diseases of the blood and blood-forming organs and certain disorders involving the immune mechanism
CPT/HCPCS: 36415; 58671; 81025; 84702; 85027; 86850; 86900; 86901; 93005; 93010; A4264; J0690; J1100; J2250; J2370; J2405; J2704; J2710; J3010; J7120